=== PATIENT | male | born 1945 | race Caucasian/White ===

== ENCOUNTER → 2016-08-30 | Day surgery (SDC) | payer OTHER ==
[~2016-08-30] VITALS: Ht 182.9 cm; Wt 129.0 kg
[~2016-08-30] MED LIST: ACET-1311 PO; ACETAMINOPHEN 325 MG TAB PO PRN; APIX1TAB PO; ASPCH81X PO; BUME1TAB PO; CARV6.25 PO; CRS/10 PO; DOCU100C; DVN80 PO; FENTANYL CITRATE INJ 50 MCG/1 ML 2 ML VIAL ONE; FERR27TA5; FLM4; HEPARIN SOD (PORCINE) 1000 UNIT/ML 10 ML VIAL ONE; MELATAB2 PO; MIDAZOLAM HCL 1 MG/ML 2ML VIAL ONE; NITROGLYCERIN/D5W 100MCG/ML 20ML SYR ONE; NiCARDipine HCL INJ 2.5 MG/ML 10 ML AMP ONE; SODIUM CHLORIDE 0.9% 1000ML 1,000 ML IV SCH; SODIUM CHLORIDE 0.9% 1000ML 250 ML IV PRN; SPIR25TA PO
[2016-08-30 07:10] VITALS: BP 143/86; PULSE 81; TEMP 36.4; O2SAT 96; Ht 182.9 cm; Wt 129.0 kg
[2016-08-30 09:52] LABS: ISTAT ARTERIAL BLOOD GAS HCO3 31 meq/L (19-24); ISTAT ARTERIAL BLOOD GAS PCO2 49 mmHg (35-46); ISTAT ARTERIAL BLOOD GAS PO2 < 32 mmHg (80-95); ISTAT ARTERIAL BLOOD GAS pH 7.42 (7.35-7.45); ISTAT CARBON DIOXIDE 33 mEq/l (24-31)
[2016-08-30 09:52] LABS: ISTAT ARTERIAL BLOOD GAS HCO3 27 meq/L (19-24); ISTAT ARTERIAL BLOOD GAS PCO2 48 mmHg (35-46); ISTAT ARTERIAL BLOOD GAS PO2 35 mmHg (80-95); ISTAT ARTERIAL BLOOD GAS pH 7.35 (7.35-7.45); ISTAT CARBON DIOXIDE 28 mEq/l (24-31)
[2016-08-30 09:53] LABS: ISTAT ARTERIAL BLOOD GAS HCO3 26 meq/L (19-24); ISTAT ARTERIAL BLOOD GAS PCO2 42 mmHg (35-46); ISTAT ARTERIAL BLOOD GAS PO2 71 mmHg (80-95); ISTAT CARBON DIOXIDE 27 mEq/l (24-31)
--- NOTE | 2016-08-30 10:12 | Procedure Note ---
Pre-Mod Sedation Assessment General Date of Moderate Sedation: Aug 30, 2016. Vital Signs: Vital Signs Past 12 Hours Date Time Temp Pulse Resp B/P Pulse Ox O2 Delivery O2 Flow Rate FiO2 08/30/16 10:00 60 16 173/89 96 Room Air 08/30/16 09:55 73 16 173/95 96 Room Air 08/30/16 09:50 68 16 162/100 96 Room Air 08/30/16 09:45 66 16 169/102 96 Room Air 08/30/16 07:10 36.4 81 16 143/86 96 Room Air Review Cardiovascular: + systolic murmur, + abnormal rhythm, + pertinent finding ( pretibial edema) Abdomen: non tender, soft Lungs: lungs clear Pre-Sedation Airway Assessment Oral Cavity: Dentures Able to Visualize Vocal Cords: No Short Thick Neck: No Hx of Sleep Apnea: No Smoking Status: Former Smoker Mallampati Classification: Class III Procedure Planning Contraindications-for Mod Sed: None Yes Notes The planned sedation has been discussed with the patient and consent obtained. I have identified the patient, determined the appropriateness of sedation and have assessed the patient immediately prior to the procedure. All medicine(s) and interventions are by my order.
--- NOTE | 2016-08-30 10:14 | History & Physical Bridge Note ---
H&P Re-Evaluation Bridge Note: I have examined the patient, reviewed the History & Physical and in the interval since the performance of the History & Physical I have noted the following changes of clinical significance: No changes noted Procedure,risks,benefits ,alternatives of right and left heart cath,coronary angiography, and LV angiography discussed with patient by me. He agrees. Bryce Kirk MD
--- NOTE | 2016-08-30 10:15 | Procedure Note ---
Post-Mod Sedation Assessment General Date of Moderate Sedation Aug 30, 2016. Vital Signs: Vital Signs Past 12 Hours Date Time Temp Pulse Resp B/P Pulse Ox O2 Delivery O2 Flow Rate FiO2 08/30/16 10:00 60 16 173/89 96 Room Air 08/30/16 09:55 73 16 173/95 96 Room Air 08/30/16 09:50 68 16 162/100 96 Room Air 08/30/16 09:45 66 16 169/102 96 Room Air 08/30/16 07:10 36.4 81 16 143/86 96 Room Air Review - Discharge Criteria Vital Signs Stable: Yes Alert/Oriented/Conversant: Yes Returned to Baseline Mental St: Yes Nausea Absent/Minimal: Yes Pain/Discomfort/Absent/Minimal: Yes Normal/Baseline Respirations: Yes Active Bleeding?: No Pt Received D/C Instructions: Yes Prescriptions Given: None Specific Proced. D/C Criteria Distal Pulses Present (Cardiac: Yes Groin site assessed-Card Cath: N/A Voided Prior To Discharge: Yes Discharged Patients Adult Escort/Transportation: Yes
--- NOTE | 2016-08-30 10:23 | Discharge Instructions ---
Discharge Instructions Procedure Procedure Date: Aug 30, 2016. Reason for Visit: Cardiomyopathy Yelena. Discharge Discharge Date: Aug 30, 2016. Discharge Diagnosis: Three vessel CAD,severe LV systolic dysfunction, mitral regurgitation Last Recorded Wt (Kilograms): 129 Anesthesia Post Anesthesia Instructions: If you have had General Anesthesia or IV Sedation: * Do not drive today. * Resume driving when surgeon permits. * Do not make important decisions or sign legal documents today. * Call surgeon for: 1. Temperature elevations greater than 101 degrees F. 2. Uncontrollable pain. 3. Excessive bleeding. 4. Persistent nausea and vomiting. 5. Medication intolerance (nausea, vomiting or rash). * For nausea and vomiting use only clear liquids such as: tea, soda, bouillon until nausea subsides, then gradually increase diet as tolerated. * If you have any concerns or questions, call your surgeon's office. If physician is unavailable and it is an emergency, call 911 or go to the nearest emergency room. Instructions Activity Recommendations: resume regular activity (resume regular activity in 48 hr), lifting limitation (no lifting over 10 pounds for 48hr), driving or machine use limit (No driving until 08/31/16) Allergies: Coded Allergies: NSAIDs (Verified Allergy, Unknown, HIVES, 08/30/16) Follow Up Additional Instructions: call Dr. Castle for any questions . Call Dr. Kirk at [phone] for any problems or questions about cardiac cath Follow-up with: Dr. Castle as scheduled. [facility] Recommendations: Call your doctor if: * Temperature above 101 degrees * Pain not relieved by pain medicine ordered * There is increased drainage or redness from any incision * You have any unanswered questions or concerns. Your Doctors Instructions noted above were prepared by provider Brian Kirk. Patient Signature Section: Patient Instructions Signature Page Gil Sauceda Patient (or Guardian) Signature/Date: I have read and understand the instructions given to me by my caregivers. Caregiver/RN/Doctor Signature/Date: The above-named patient and/or guardian has received patient instructions on this date. + Original Patient Signature Page (only) stays with chart. Please make copy for patient.
--- NOTE | 2016-08-30 10:51 | Cardiac Catheterization ---
Procedure Note Procedure Date Aug 30, 2016. Pre-Procedure Diagnosis Valvular Disease, Cardiomyopathy AUC Score 8 Post-Procedure Diagnosis Severe CAD, Decreased LV Systolic Function, Elevated Intracardiac Pressures Procedure(s) Performed Coronary Angiography, Left Heart Cath, Right Heart Cath, LV Angiography [employer] Dr. Kirk Gas Meter Installer Helper(s) Kan DumontRTR Estimated Blood Loss 25 ml Medication(s) Fentanyl, Heparin, Nicardipine (intra arterial), Versed, Lidocaine 1% Summary of Findings Clinical indications: Cardiomyopathy and severe mitral regurgitation on transthoracic echocardiogram, CAD risk factors, chronic systolic heart failure Catheterization site: 6 Polish glide sheath right antecubital vein and 6 Polish glide sheath right radial artery. Catheters: 6 Polish Yulan-Chayo J-tip catheter for right heart catheterization. Unsuccessful attempt at coronary angiography with 5 Polish brachial 3.5 diagnostic catheter. 6 Polish JL4, JR4, 3DRC, and pigtail catheters. Hemostasis: Manual pressure right antecubital venous sheath site. Terumo TR band right radial catheterization site. Complications: None, Findings : Pressures in millimeter Hg were: RA 07/06/2011; RV43/10; PA 40 ; pulmonary wedge /17/14; rest aorta 123/60/89; LV 120/19; final aorta 115/60 5/87. The cardiac output by the thermodilution method was 4.6 liters/minutes squared. Botti Vinicio method the cardiac output was 4.7 liters/minute per meter squared. Cardiac index using the thermodilution cardiac output was 1.8 liters/minute per meter squared. Aortic oxygen saturation 94 percent on room air. Pulmonary artery oxygen saturation 64 percent. Right atrial oxygen saturation 62 percent. Pulmonary vascular resistance in Cook units was 3.1. Systemic vascular resistance in Cook units was 17.1. Fluoroscopy revealed coronary calcifications. Coronary circulation was right dominant. The left main coronary artery was a large caliber vessel giving rise to large caliber left anterior descending and left circumflex coronary arteries. The ostium and proximal segment of the left main had a 10 percent stenosis. The proximal LAD had diffuse atherosclerotic narrowing with tendon 30 percent stenoses. The very proximal LAD gave rise to a very small caliber 1st diagonal artery which had a 75 percent ostial stenosis. The early mid LAD had an eccentric 95 percent stenosis at the origin of a medium caliber 2nd diagonal. The ostium of the 2nd diagonal had a 30 percent stenosis. The mid LAD gave rise to a long small to medium caliber 3rd diagonal artery. Following the origin of the 3rd diagonal the LAD had a 20 percent stenosis. The remainder the mid and distal LAD had diffuse mild atherosclerotic disease with 0 -10 percent luminal diameter narrowing. The ostium of the left circumflex and proximal left circumflex had 50 percent stenoses. The proximal circumflex gave rise to a very small caliber marginal artery. The early mid circumflex gave rise to a 2nd marginal artery which had a total very proximal occlusion. The mid circumflex gave rise to a 3rd marginal artery which had a total very proximal occlusion. The mid circumflex then gave rise to a small caliber 4th marginal artery. Nrec-[id number]-qcno collateral flow was present to the 2nd and 3rd marginal arteries. Left to right collateral flow was present from the left coronary to the right posterior descending and posterolateral arteries. The right coronary was a medium caliber vessel which had a total proximal stenosis. There is faint right to right collateral flow. There was [id number]-[id number] collateral flow. Left ventricular angiography performed from the 30 degree right anterior oblique projection revealed LV ejection fraction 25 percent. Severe global hypokinesis of the left ventricle except that the diaphragmatic segment appeared to be akinetic. Angiographically there was 2 to 3+ mitral regurgitation. Plan: The patient will be discharged home today. He will have continued cardiology follow-up with Dr. Clifford Castle. He will be referred to [facility] for consideration of coronary artery revascularization and repair of the mitral valve. The options would be a surgical approach versus a percutaneous coronary intervention and mitral valve clip procedure. Hemodynamics Rest Ao: 123/60/89 mm Hg Final Ao: 115/65/87 mm Hg LV: 126/18 mm Hg RA: 15/11/11/ mm Hg RV: 43/10 mm Hg PA: 43/16/28 mm Hg PW: 20/17/14 mm Hg Recommendations CABG Specimens None Radiation Exposure (mGy) 3322 Contrast (mls) 129 Fluids (cc crystalloids) 129 Drains none Procedural Complication(s) None Disposition Mill Tender Holding/Recovery ACC Data Cardiac Status Clinical evaluation leading to the procedure CAD Presntation: No Sxs, no angina Anginal Classification: No symptoms Heart Failure: NYHA Class: CCS III Cardiogenic Shock w/in 24Hrs: No Cardiac Arrest w/in 24Hrs: No Imaging studies past 6 months: Yes Standard Exercise Stress Test: No Stress Echocardiogram: No Stress Testing w/SPECT MPI: No Cardiac CTA: No Coronary Anatomy Dominant: Right Left Main (% Stenosis): Ostial (10), Proximal (10) LAD (% Stenosis): Proximal (10-30), Mid (95,20), Distal (10) D1 (% Stenosis): Ostial (75) D2 (% Stenosis): Ostial (30) Circumflex (% Stenosis): Ostial (50), Proximal (50) OM2 (% Stenosis): Proximal (100) OM3 (% Stenosis): Proximal (100) RCA (% Stenosis): Proximal (100) Left Ventricular Angiography EF (%): 25 Wall Motion: Inferior (Akinetic), Apical (Hypokinetic), Anterior (Hypokinetic) Mitral Regurgitation: 3+ Diagnostic Physician's Name: Brian Kirk M.D. Closure Device Percutaneous Entry Location: Radial Closure Device: Radial Band Recommendations: CABG
[2016-08-30 11:25] VITALS: BP 160/80; PULSE 84; TEMP 36.4; O2SAT 96
[2016-08-30 12:15] VITALS: BP 160/80; PULSE 86; O2SAT 96
== END | disposition home or self-care (01) ==
LOC: C.CATH 06:42
PROVIDERS: ATTEND Internal Medicine Cardiovascular Disease
DX: I25.10 Atherosclerotic heart disease of native coronary artery without angina pectoris (principal); R94.39 Abnormal result of other cardiovascular function study

== ENCOUNTER → 2016-11-23 | Outpatient (CLI) | payer OTHER ==
[~2016-11-23] MED LIST changes: -ACETAMINOPHEN 325 MG TAB PO PRN; -FENTANYL CITRATE INJ 50 MCG/1 ML 2 ML VIAL ONE; -HEPARIN SOD (PORCINE) 1000 UNIT/ML 10 ML VIAL ONE; -MIDAZOLAM HCL 1 MG/ML 2ML VIAL ONE; -NITROGLYCERIN/D5W 100MCG/ML 20ML SYR ONE; -NiCARDipine HCL INJ 2.5 MG/ML 10 ML AMP ONE; -SODIUM CHLORIDE 0.9% 1000ML 1,000 ML IV SCH; -SODIUM CHLORIDE 0.9% 1000ML 250 ML IV PRN
[2016-11-23 11:53] LABS: ARTERIAL BLD GAS O2 SATURATION 95.5 % (90-95); ARTERIAL BLOOD GAS BASE EXCESS 3.5 mEq/L (-9-1.8); ARTERIAL BLOOD GAS HCO3 27 mmol/L (19-24); ARTERIAL BLOOD GAS PO2 72 mm/Hg (80-95); ARTERIAL BLOOD GAS pH 7.47 (7.35-7.45); O2 ADMINISTRATION RA
[2016-11-23 11:54] LABS: ALLEN TEST POS (POS)
--- NOTE | 2016-11-23 23:49 | PULMONARY FUNCTION TEST ---
Spirometry is within the limits of normal. Repeat study done following bronchodilator showed no change in function. Diffusion capacity is 64% of predicted. However, when corrected for alveolar ventilation, it was 82%. Advise clinical correlation.
--- NOTE | 2016-11-30 08:58 | CODING QUERY MEDICAL NECESSITY ---
SUPPORTING DIAGNOSIS NEEDED Dr. Hagen, A supporting diagnosis is required for the test/procedure performed on this patient in order for us to be reimbursed by the patient's insurance. Please provide a supporting diagnosis for the following test/procedure listed below next to the test name along with your signature. *If there is no additional diagnosis for this patient that would support the following test/procedure please document that below next to the test/procedure. Test(s)/Procedure(s) that require a supporting diagnosis: * ([id number]) PRE AND POST PFT DIAGNOSIS: * ([id number]) PULM FUNCT DIFFUSION DIAGNOSIS: DATE OF SERVICE: 11/23/16 Provider Signature: Date: Thank you Jacob Hung [facility] Information Management Once completed, please kindly fax back to [phone] For questions please call [phone]
== END | disposition home or self-care (01) ==
LOC: C.RC 10:02
PROVIDERS: ATTEND Thoracic Surgery (Cardiothoracic Vascular Surgery)
DX: Z01.818 Encounter for other preprocedural examination (principal); I25.10 Atherosclerotic heart disease of native coronary artery without angina pectoris; I34.0 Nonrheumatic mitral (valve) insufficiency; I25.5 Ischemic cardiomyopathy; I50.9 Heart failure, unspecified

== ENCOUNTER 2017-09-20 11:13 | Observation (INO) | payer OTHER ==
[~2017-09-20] VITALS: Ht 182.9 cm; Wt 140.0 kg
[~2017-09-20 11:13] MED LIST changes: +CEFAZOLIN 1000MG IV PUSH 5 ML IV SCH; +CEFAZOLIN 3000MG IV PUSH 15 ML IV SCH; +LACTATED RINGER'S 1000ML 1,000 ML IV SCH
[2017-09-20] MEDS ORDERED: LIDOCAINE HCL 1% 20 ML VIAL ONE (12:03)
[2017-09-20] MEDS ORDERED: BACITRACIN 50000 UNIT VIAL ONE (12:03)
[2017-09-20] MEDS ORDERED: BUPIVACAINE 0.5 % 5 MG/1 ML MPF 30ML VIAL ONE (12:03)
[2017-09-20 12:15] VITALS: BP 135/68; PULSE 67; TEMP 37.2; O2SAT 97; BMI 41.0
--- NOTE | 2017-09-20 12:23 | History & Physical Bridge Note ---
H&P Re-Evaluation Bridge Note: I have examined the patient, reviewed the History & Physical and in the interval since the performance of the History & Physical I have noted the following changes of clinical significance: Feeliing well. Stopped apixaban No changes noted
--- NOTE | 2017-09-20 12:24 | Pre Sedation Assessment ---
Pre Sedation Assessment General Date of Sedation: Sep 20, 2017. Review Cardiovascular: regular rate, rhythm Lungs: lungs clear Pre-Sedation Airway Assessment Smoking Status: Former Smoker Mallampati Classification: Class III ASA Classification: Class III Procedure Planning Contraindications for Sedation: None Current Medications Reviewed: Yes Notes The planned sedation has been discussed with the patient. Informed Consent was obtained. I have identified the patient, determined the appropriateness of sedation and have assessed the patient immediately prior to the procedure. All medicine(s) and interventions are by my order.
[2017-09-20] MEDS ORDERED: SACU1TAB PO (12:25)
[2017-09-20] MEDS ORDERED: FENTANYL CITRATE INJ 50 MCG/1 ML 2 ML VIAL ONE (13:09)
[2017-09-20] MEDS ORDERED: MIDAZOLAM HCL 5 MG/ML 1 ML VIAL ONE (13:10)
[2017-09-20] MEDS ORDERED: CEFAZOLIN SOD 1 GM VIAL ONE (13:11)
--- NOTE | 2017-09-20 14:09 | [facility] Operative Report ---
Operative Report Date of Service Sep 20, 2017. Operative Report Procedure performed: Implantation of single-chamber ICD Staff motorcycle racer: Chau Laws MD Indication: The patient is a 72-year-old gentleman with a history of ischemic cardiomyopathy. He has also undergone mitral valve replacement. Despite optimal medical therapy the patient continues to have left ventricular systolic failure with the ejection fraction of 30 percent. Based on his degree of LV dysfunction is felt to be a good candidate for implantation of single-chamber ICD as primary prevention against sudden cardiac . He has not had any revascularization within the past 90 days, he has not suffered a myocardial infarction in the past 40 days. He has [place] heart Association class 2 symptoms and anticipated longevity greater than 1 year. Procedure in detail: The patient was informed of the risks benefits and alternatives to the intended procedure and he wished to proceed. She was taken to the electrophysiology suite in a fasting state. A preoperative antibiotic had been administered. The patient was monitored electrocardiographically throughout today's procedure and conscious sedation was administered per protocol. The left upper pectoral area is prepped and draped in usual sterile fashion. This area was anesthetized using subcutaneous menstruation of a xylocaine solution. An incision was made at this site and carried down to the prepectoralis fascia using sharp dissection. Electrocautery was also employed for dissection as well as for hemostasis. A device pocket was fashioned tissues above the pectoralis muscle. Subsequent to this maneuver the left axillary vein was accessed using modified Seldinger technique. A sheath was placed over a guidewire at this site and used to facilitate passage of the ICD lead to the right ventricular apex under fluoroscopic guidance. Adequate sensing and threshold parameters were obtained prior to Active fixation of the lead to the endocardial surface. The proximal portion lead was then sutured the prepectoral fascia using nonabsorbable suture. The device pocket was irrigated with antibiotic solution. The lead was then attached to the device. The device and lead were then placed in the pocket and pocket was closed in 3 layers of absorbable suture. Steri-Strips and sterile dressing were applied. The device was tested noninvasively prior to conclusion the procedure. The patient tolerated procedure well there no immediate complications. Equipment used: New pulse generator: Television Receiver Analyzer MedThe Idle Man. Model number: [id number] D 4 serial number [id number] Right ventricular lead: Television Receiver Analyzer Medtronic. Model number: 6947 M serial number [id number] Measured data: Right ventricular lead: R-waves measured 5.5 millivolts. Pacing threshold 0.5 volts at 0.4 milliseconds with a pacing impedance of 576 Ohms Impression: Successful implantation of single-chamber ICD I attest to the content of the Intraoperative Record and any orders documented therein. Any exceptions are noted below.
[2017-09-20] MEDS ORDERED: ACETAMINOPHEN 325 MG TAB PO PRN (14:15)
[2017-09-20] MEDS ORDERED: IV FLUIDS COMPLETED PRN (14:45)
[2017-09-20 15:03] VITALS: BP 136/68; PULSE 65; TEMP 36.5; O2SAT 98; Ht 182.9 cm; Wt 140.0 kg
[2017-09-20] MEDS: CEFAZOLIN IV 2,000 MG in SYRINGE 5 ML IV SCH ×2 (16:56→23:58)
[2017-09-20] MEDS ORDERED: LORAZEPAM 0.5 MG TAB PO PRN (17:15)
[2017-09-20] MEDS ORDERED: CEFAZOLIN IV 1,000 MG in DEXTROSE 5% 50ML 50 ML IV SCH (18:00)
[2017-09-20] MEDS: OXYCODONE HCL IR 5 MG TAB (IMMEDIATE RELEASE) PO PRN ×2 (19:52→23:57)
[2017-09-20] MEDS: SACUBITRIL-VALSARTAN 24-26 MG TAB PO SCH (19:52)
[2017-09-20] MEDS: CARVEDILOL 6.25 MG TAB PO SCH (19:53)
[2017-09-20 20:01] VITALS: BP 117/77; PULSE 75; TEMP 36.6; O2SAT 94
[2017-09-20] MEDS ORDERED: TAMSULOSIN HCL 0.4 MG CAP PO SCH (21:00)
[2017-09-20 23:19] VITALS: BP 144/87; PULSE 66; TEMP 36.7; O2SAT 93
[2017-09-21 03:38] VITALS: BP 124/68; PULSE 81; TEMP 36.8; O2SAT 97
[2017-09-21] MEDS: OXYCODONE HCL IR 5 MG TAB (IMMEDIATE RELEASE) PO PRN ×2 (05:40→10:00)
--- NOTE | 2017-09-21 07:24 | DIAGNOSTIC IMAGING REPORT ---
CHEST 2 VIEWS ROUTINE CLINICAL HISTORY: Pacemaker placement COMPARISON STUDY: 07/05/2016 FINDINGS: There are postsurgical changes of midline sternotomy. There is a left subclavian pacer/defibrillator present. Irregularity of the lead in the midline, is of questionable significance given that pacemaker was recently placed. There is no pneumothorax. There is no focal pulmonary consolidation.[ IMPRESSION: 1. No evidence of pneumothorax status post placement of a left subclavian pacer/defibrillator 2. Irregularity of the proximal lead in the midline, finding of questionable significance Electronically signed by: Brad Asencio M.D. 09/21/2017 7:23 AM Dictated Date/Time: 09/21/2017 7:19 AM
[2017-09-21] MEDS: CARVEDILOL 6.25 MG TAB PO SCH (07:53)
[2017-09-21] MEDS: SACUBITRIL-VALSARTAN 24-26 MG TAB PO SCH (07:56)
[2017-09-21 08:07] VITALS: BP 139/83; PULSE 79; TEMP 36.9; O2SAT 95
[2017-09-21] MEDS ORDERED: BUMETANIDE 1 MG TAB PO SCH (09:00)
[2017-09-21] MEDS ORDERED: SPIRONOLACTONE 25 MG TAB PO SCH (09:00)
[2017-09-21] MEDS ORDERED: ASPIRIN 81 MG ECTAB PO SCH (09:00)
[2017-09-21] MEDS ORDERED: RXC5 PO (09:10)
--- NOTE | 2017-09-21 09:14 | Discharge Instructions ---
Discharge Instructions Date of Service Sep 21, 2017. Admission Reason for Admission: Ischemic Cardiomyopathy Eusebia To Do Discharge Discharge Diagnosis / Problem: Cardiomyopathy Discharge Goals Goal(s): Therapeutic intervention Activity Recommendations Activity Limitations: as noted below Lifting Limitations: no more than 10 pounds Exercise/Sports Limitations: until after follow-up appointment May Resume Sexual Activity: after follow-up appointment Shower/Bathe: keep incision dry Driving or Machine Use: resume 1 day after discharge Keep wound dry and Steri-Strips intact until follow-up next week. No lifting left arm above shoulder behind neck for 6 weeks. . Instructions / Follow-Up Instructions / Follow-Up Resume Eliquis on September 23, 2017. Do not take Eliquis until that date. Current Hospital Diet Patient's current hospital diet: AHA Diet (Heart Healthy) Discharge Diet Recommended Diet: AHA Diet (Heart Healthy) Procedures Procedures Performed: Implantation of single-chamber Medtronic ICD Pending Studies Studies pending at discharge: no Medical Emergencies . Who to Call and When: Medical Emergencies: If at any time you feel your situation is an emergency, please call 911 immediately. . Non-Emergent Contact Non-Emergency issues call your: Mobile Ui Designer Call Non-Emergent contact if: you have a fever, your pain is concerning you, you have any medication questions . . "Provider Documentation" section prepared by Jm Laws. . VTE Core Measure Inpt VTE Proph given/why not?: Treatment not indicated
[2017-09-21 09:16] VITALS: BP 139/83; PULSE 79; TEMP 36.9; O2SAT 95
--- NOTE | 2017-09-21 09:16 | Discharge Summary ---
Discharge Summary Admission Date: Sep 20, 2017 at 14:08 Discharge Disposition: Home Primary Diagnosis: Ischemic cardiomyopathy Procedures: Implantation of single-chamber Medtronic ICD Discharge Instructions Last Recorded Wt (Kilograms): 140.000 Activity Recommendations: limitations Return to School/Work: no limitations Diet At Discharge: resume previous diet Allergies: Coded Allergies: NSAIDs (Verified Allergy, Unknown, HIVES, 09/20/17) Home Health Services: none Special Care: Call your doctor if: * Temperature above 101 degrees * Pain not relieved by pain medicine ordered * There is increased drainage or redness from any incision * You have any unanswered questions or concerns. Avoid all tobacco products. If you need help to stop smoking, call [facility] FREE QUITLINE at . This is a free call. Admission HPI Patient is a 72-year-old gentleman with a history of cardiomyopathy who was referred for implantation of prophylactic ICD. Admission Physical Exam Additional Comments: On the day of discharge the patient's wound was clean and dry. There is no hematoma. There is no erythema. Incision appears to be intact. Hospital Course On the day of admission the patient underwent implantation of single-chamber Medtronic ICD. There were no immediate complications. The following morning the patient reported some mild discomfort at the implant site. There were no other complaints. Physical examination did not reveal any evidence of hematoma or complication. Chest x-ray demonstrated stable lead position without evidence of pneumothorax or other complication. A device interrogation revealed poor sensing in the true bipolar configuration. This was changed to integrated bipolar with improved results. Thresholds were normal. The remaining device function was normal. Total time spent on discharge = This includes examination of the patient, discharge planning, medication reconciliation, and communication with other providers.
== END 2017-09-21 10:32 | disposition home or self-care (01) ==
LOC: C.ACU 11:13 → C.2T 14:08 → ENRESERV 14:13
PROVIDERS: ADMIT Internal Medicine Clinical Cardiac Electrophysiology; ATTEND Internal Medicine Clinical Cardiac Electrophysiology
DX: I25.5 Ischemic cardiomyopathy (principal); Z95.2 Presence of prosthetic heart valve; Z87.891 Personal history of nicotine dependence; I50.22 Chronic systolic (congestive) heart failure; I11.0 Hypertensive heart disease with heart failure; Z82.49 Family history of ischemic heart disease and other diseases of the circulatory system; Z80.9 Family history of malignant neoplasm, unspecified